=== PATIENT | female | born 1950 | race Asian ===

== ENCOUNTER 2017-01-01 10:29 | Inpatient (IN) | payer MEDICARE, OTHER ==
[2017-01-01] VITALS (7 sets, daily range): BP systolic 110–120; BP diastolic 65–73; PULSE 95–120; RESP 18–20; TEMP 99.3; Ht 142.2 cm; Wt 52.0 kg
[~2017-01-01] VITALS: Ht 142.2 cm; Wt 52.0 kg
[2017-01-01] MEDS ORDERED: SOD CHLORIDE 0.9% 1,000 ML IV STA ×2 (10:33)
[2017-01-01] MEDS ORDERED: CEFEPIME 2GM/50 ML (PMX) 50 ML IVPB STA (10:33)
[2017-01-01] MEDS ORDERED: VANCOMYCIN 1 GM (PMX) 250 ML IVPB ONE (11:00)
[2017-01-01 11:05] LABS: ABNORMAL IP MESSAGE 1; BASOPHILS % 0.1 % (0.0-2.0); HEMATOCRIT 35.5 % (37.0-47.0); HEMOGLOBIN 11.2 g/dl (12.0-16.0); LYMPHOCYTES # 0.6 10^3/ul (0.8-2.9); LYMPHOCYTES % 7.4 % (15.0-51.0); MEAN CORPUSCULAR HEMOGLOBIN 22.1 pg (29.0-33.0); MEAN CORPUSCULAR HGB CONC 31.5 g/dl (32.0-37.0); MEAN PLATELET VOLUME 11.1 fl (7.4-10.4); MONOCYTE # 0.6 10^3/ul (0.3-0.9); MONOCYTES % 7.4 % (0.0-11.0); NEUTROPHILS % 84.7 % (39.0-77.0); PLATELET COUNT 182 10^3/UL (140-415); RED BLOOD COUNT 5.07 10^6/ul (4.20-5.40); RED CELL DISTRIBUTION WIDTH 15.3 % (11.5-14.5); WHITE BLOOD COUNT 8.4 10^3/ul (4.8-10.8)
[2017-01-01 11:09] LABS: POSITIVE DIFF @See below
--- NOTE | 2017-01-01 11:18 | RADRPT ---
PROCEDURE: XR Chest. CLINICAL INDICATION: Sepsis . TECHNIQUE: Single frontal chest x-ray. COMPARISON: None. FINDINGS: The lungs are clear of acute infiltrates, edema, effusions, or masses. Cardiomegaly with calcific at herosclerosis of the aorta is present. . The hilar vascular prominence is noted.. The osseous stru ctures are intact. IMPRESSION: Cardiomegaly with hilar vascular prominence. No alveolar infiltrates, edema, or effusions.. RPTAT: AA .Dipak Diane MD, MD Date Time Electronically viewed and signed by .Dipak Diane MD, MD on 01/01/2017 11:18 .L/
[2017-01-01 11:19] LABS: INR 1.16; PROTIME 14.9 Sec (12.2-14.2); PT RATIO 1.2
[2017-01-01 11:20] LABS: PARTIAL THROMBOPLASTIN TIME 34.3 Sec (25.0-35.0)
[2017-01-01 11:23] LABS: ALANINE AMINOTRANSFERASE 18 IU/L (13-69); ALBUMIN 3.3 g/dl (3.3-4.9); ALKALINE PHOSPHATASE 59 IU/L (42-121); ANION GAP 20 (8-16); ASPARTATE AMINO TRANSFERASE 18 IU/L (15-46); BILIRUBIN,INDIRECT 0.6 mg/dl (0-1.1); BILIRUBIN,TOTAL 0.6 mg/dl (0.2-1.3); BLOOD UREA NITROGEN 15 mg/dl (7-20); CALCIUM 8.2 mg/dl (8.4-10.2); CARBON DIOXIDE 16 mmol/L (21-31); CHLORIDE 112 mmol/L (97-110); CREATININE 1.33 mg/dl (0.44-1.00); GLUCOSE 196 mg/dl (70-220); POTASSIUM 3.8 mmol/L (3.5-5.1); SODIUM 144 mmol/L (135-144); TOTAL PROTEIN 6.3 g/dl (6.1-8.1)
[2017-01-01 11:25] LABS: ACETAMINOPHEN < 10.0 ug/ml (10.0-30.0); ETHANOL < 10.0 mg/dl; SALICYLATE < 1.0 mg/dl (5.0-30.0)
[2017-01-01 11:35] LABS: TROPONIN-I < 0.012 ng/ml (0.00-0.12)
[2017-01-01 11:37] LABS: UR BACTERIA FEW /HPF (NONE SEEN); UR MUCUS FEW /HPF (NONE SEEN); UR RBC 6 /HPF (0-5); UR WBC CLUMPS MANY /HPF (NONE SEEN)
[2017-01-01 11:47] LABS: BARBITURATES Negative (NEGATIVE); BENZODIAZEPINES Negative (NEGATIVE); CANNABINOIDS Negative (NEGATIVE); COCAINE Negative (NEGATIVE); OPIATES Negative (NEGATIVE)
--- NOTE | 2017-01-01 12:01 | RADRPT ---
PROCEDURE: CT Brain without contrast. CLINICAL INDICATION: Possible sepsis. . TECHNIQUE: A CT of the brain was performed on multidetector high-resolution CT scanner utilizing a xial sections from the skull base through the vertex without contrast. The scan was reviewed in sof t tissue brain and high frequency resolution bone algorithm windows. Images were reviewed on a high -resolution PACS workstation. One or more the following does reduction techniques were utilized: Aut omated exposure control, adjustment of the mA/ or kV according to patient's size, or use of iterativ e reconstruction technique. The exam CTDI = 44.88 mGy and the DLP = 630.2 mGy-cm. COMPARISON: None available. FINDINGS: The ventricles and sulci are mildly prominent indicative of volume loss, more pronounced in bilatera l frontal lobes. There is no intracranial hemorrhage, mass effect or midline shift. No abnormal in tra-axial or extra-axial fluid collections are seen. The sanders/white matter differentiation is preser maria esther. There are mild scattered foci of hypoattenuation in the white matter, which are nonspecific in etiol ogy but likely reflect chronic small vessel ischemic changes. There are mild intracranial vascular calcifications consistent with atherosclerosis. The visualized paranasal sinuses are essentially zachary ar. IMPRESSION: 1. No acute intracranial hemorrhage, transcortical infarction or mass effect. 2. Mild intracranial atherosclerosis and chronic small vessel ischemic changes. 3. Mild cerebral volume loss. RPTAT: HH .Sayda Kapoor MD, MD Date Time Electronically viewed and signed by .Sayda Kapoor MD, MD on 01/01/2017 12:00 .N/
[2017-01-01 12:14] LABS: ADD UMIC YES; UR ASCORBIC ACID NEGATIVE (NEGATIVE); UR BILIRUBIN (Dip) NEGATIVE (NEGATIVE); UR BLOOD (Dip) 1+ mg/dL (NEGATIVE); UR CLARITY CLOUDY (CLEAR); UR COLOR YELLOW (YELLOW); UR GLUCOSE (Dip) NEGATIVE (NEGATIVE); UR KETONES (Dip) 1+ mg/dL (NEGATIVE); UR LEUKOCYTE ESTERASE (Dip) 3+ Leu/ul (NEGATIVE); UR NITRITE (Dip) POSITIVE (NEGATIVE); UR NONSQUAMOUS EPITHELIAL CELL 1 /HPF (NONE SEEN); UR SPECIFIC GRAVITY (Dip) 1.013 (1.003-1.030); UR TOTAL PROTEIN (Dip) 2+ mg/dl (NEGATIVE); UR UROBILINOGEN (Dip) NEGATIVE (NEGATIVE)
[2017-01-01] MEDS ORDERED: ACETAMINOPHEN 325 MG TAB PO PRN ×2 (12:30→20:30)
[2017-01-01] MEDS ORDERED: ONDANSETRON 4 MG INJ IV PRN (12:30)
--- NOTE | 2017-01-01 13:29 | ERA ---
ER Documentation Chief Complaint Date/Time DATE: 01/01/17 TIME: 13:18 Chief Complaint aloc, witnessed syncope while at [facility] emergency department HPI Patient is an approximately 59-year-old female who presents with syncope. She is also altered. Please note the history and physical exam is limited secondary to the patient's altered mental status at this time. The patient was [facility] and passed out in the bathroom. The patient was brought in by ambulance. The patient was unresponsive initially and diaphoretic but is now awake although confused. The patient's sugar was 183 and EKG showed tachycardia. The patient was given 500 mL of normal saline by paramedics. Her blood pressure was low at 80/40. ROS All systems reviewed and are negative except as per history of present illness. Medications Home Meds Unable to Obtain Active Prescriptions or Reported Meds Allergies Allergies: Coded Allergies: Unknown: Unable to obtain (Unverified , 01/01/17) PT UNRESPONSIVE PMhx/Soc Medical and Surgical Hx: Unable to obtain Smoking Status: Unknown if ever smoked FmHx Unable to obtain Physical Exam Vitals Vital Signs Date Time Temp Pulse Resp B/P Pulse Ox O2 Delivery O2 Flow Rate FiO2 01/01/17 13:06 86 20 98/66 98 Room Air 01/01/17 11:35 101 22 95/77 98 Room Air 01/01/17 11:15 110 22 87/65 97 Room Air 01/01/17 11:13 Nasal Cannula 2 01/01/17 10:54 115 22 79/63 98 Room Air 01/01/17 10:30 99.3 122 30 76/52 98 Physical Exam Const: Moderate distress and confused Head: Atraumatic Eyes: Normal Conjunctiva ENT: Dry mucous membranes Neck: Full range of motion..~ No meningismus. Resp: Clear to auscultation bilaterally Cardio: Tachycardic rate without murmur Abd: Soft, non tender, non distended. Normal bowel sounds Skin: No petechiae or rashes Back: No midline or flank tenderness Ext: No cyanosis, or edema Neur: Awake But confused and not answering questions appropriately Result Diagram: 01/01/17 1045 01/01/17 1045 Results 24 hrs Laboratory Tests Test 01/01/17 10:45 01/01/17 11:15 01/01/17 12:30 White Blood Count 8.410^3/ul Red Blood Count 5.0710^6/ul Hemoglobin 11.2g/dl Hematocrit 35.5% Mean Corpuscular Volume 70.0fl Mean Corpuscular Hemoglobin 22.1pg Mean Corpuscular Hemoglobin Concent 31.5g/dl Red Cell Distribution Width 15.3% Platelet Count 19604^3/UL Mean Platelet Volume 11.1fl Neutrophils % 84.7% Lymphocytes % 7.4% Monocytes % 7.4% Eosinophils % 0.0% Basophils % 0.1% Nucleated Red Blood Cells % 0.0/100WBC Neutrophils # (Manual) 7.110^3/ul Lymphocytes # 0.610^3/ul Monocytes # 0.610^3/ul Eosinophils # 0.010^3/ul Basophils # 0.010^3/ul Nucleated Red Blood Cells # 0.010^3/ul Prothrombin Time 14.9Sec Prothrombin Time Ratio 1.2 INR International Normalized Ratio 1.16 Activated Partial Thromboplast Time 34.3Sec Sodium Level 144mmol/L Potassium Level 3.8mmol/L Chloride Level 112mmol/L Carbon Dioxide Level 16mmol/L Anion Gap 20 Blood Urea Nitrogen 15mg/dl Creatinine 1.33mg/dl Glucose Level 196mg/dl Lactic Acid Level 5.4mmol/L 1.6mmol/L Calcium Level 8.2mg/dl Total Bilirubin 0.6mg/dl Direct Bilirubin 0.00mg/dl Indirect Bilirubin 0.6mg/dl Aspartate Amino Transf (AST/SGOT) 18IU/L Alanine Aminotransferase (ALT/SGPT) 18IU/L Alkaline Phosphatase 59IU/L Troponin I < 0.012ng/ml Total Protein 6.3g/dl Albumin 3.3g/dl Globulin 3.00g/dl Albumin/Globulin Ratio 1.10 Salicylates Level < 1.0mg/dl Acetaminophen Level < 10.0ug/ml Ethyl Alcohol Level < 10.0mg/dl Urine Color YELLOW Urine Clarity CLOUDY Urine pH 5.0 Urine Specific Hudson 1.013 Urine Ketones 1+mg/dL Urine Nitrite POSITIVEmg/dL Urine Bilirubin NEGATIVEmg/dL Urine Urobilinogen NEGATIVEmg/dL Urine Leukocyte Esterase 3+Violette/ul Urine Microscopic RBC 6/HPF Urine Microscopic WBC > 182/HPF Urine Bacteria FEW/HPF Urine Mucus FEW/HPF Urine Hemoglobin 1+mg/dL Urine Glucose NEGATIVEmg/dL Urine Total Protein 2+mg/dl Urine Opiates Screen Negative Urine Barbiturates Negative Urine Amphetamines Screen Negative Urine Benzodiazepines Screen Negative Urine Cocaine Screen Negative Urine Cannabinoids Negative Current Medications Medications (Trade) Dose Ordered Sig/Genesis Route PRN Reason Start Time Stop Time Status Last Admin Dose Admin Cefepime HCl 50 ml @ 100 mls/hr ONCE STAT IVPB 01/01/17 10:33 01/01/17 11:02 DC 01/01/17 11:30 Vancomycin HCl 250 ml @ 125 mls/hr ONCE ONCE IVPB 01/01/17 11:00 01/01/17 12:59 DC 01/01/17 12:57 Sodium Chloride 1,000 ml @ 1,000 mls/hr Q1H STAT IV 01/01/17 10:33 01/01/17 11:32 DC 01/01/17 11:29 Sodium Chloride (NS) 1,000 ml @ 1,000 mls/hr Q1H STAT IV 01/01/17 10:33 01/01/17 11:32 DC 01/01/17 10:45 Ondansetron HCl (Zofran Inj) 4 mg BRIDGE ORDER PRN IV NAUSEA AND/OR VOMITING 01/01/17 12:30 01/02/17 12:29 Acetaminophen 650 mg 650 mg ER BRIDGE PRN PO MILD PAIN/FEVER 01/01/17 12:30 01/02/17 12:29 Ceftriaxone Sodium (Rocephin) 50 ml @ 100 mls/hr Q24H IVPB 01/01/17 13:00 Procedures/MDM EKG read by me: Rate/Rhythm: Sinus tachycardia rate of 119 Intervals: Normal Impression: Sinus tachycardia without ischemia Chest x-ray shows no pneumonia or pneumothorax per radiology. CT brain shows no intrarenal hemorrhage or mass per radiology. Admit MDM: Patient's infectious symptoms have not stabilized and the patient is at risk of rapid decompensation. The patient will be admitted for careful hydration, antibiotic therapy, and infectious source control. Severe Sepsis criteria: Infectious source: Cystitis End organ damage indicated by: Lactate greater than 2 Sepsis Management: Time of recognition of sepsis: Upon arrival Within 3 hours of recognition: Blood cultures x 2 before broad-spectrum antibiotics: Yes 30 ml/kg NS bolus Completed Initial lactate 5.4 Repeat lactate 1.6 Time of recognition of septic shock: At the time of the initial lactic acid of 5.4 Septic Shock Assessment: Any lactic acid > 4.0 yes Persistent hypotension (SBP < 90 or 40 mmHg drop, MAP < 65) despite 30 mL/kg IV fluid bolus No Volume Re-assessment for Septic Shock (post 30 ml/kg bolus): Temp 99.3, BP 98/66, HR 86, RR 20, Pox 98% Heart Regular rate & rhythm Lungs No crackles Skin Warm & dry Cap Refill Less than 2 seconds Peripheral pulses Radially present Persistent Hypotension Treatment: Comfort care No Central line Not Required Vasopressor started Not required I considered further perfusion assessment with CVP measurement, SCVO2, bedside ultrasound volume assessment, passive leg raise, trial of further fluid bolus. And proceeded with 30 ml/kg fluid bolus of NSS, broad spectrum antibiotics, and admission. Accepting Care Team Current data and ongoing care discussed. Admitting Physician: Dr. Narvaez from the panel team Shop Hand(s): None Outstanding Data: Culture results Critical Care: Critical care time 35 minutes excluding all billable procedures Emergent fluid management while maintaining close respiratory support. Provision of immediate and broad-spectrum antibiotic therapy. Simultaneous assessment for possible sources in order to direct targeted therapy. Consideration for invasive and chemical support to prevent cardiopulmonary collapse. Departure Diagnosis: Primary Impression: Septic shock Additional Impressions: Syncope Qualified Code: R55 - Syncope, unspecified syncope type Altered mental status Qualified Code: R41.0 - Delirium Cystitis Condition: Serious ELIGIO CHEN MD Jan 01, 2017 13:28
--- NOTE | 2017-01-01 15:37 | HP ---
Date/Time of Note Date/Time of Note DATE: 01/01/17 TIME: 15:32 Assessment/Plan VTE Prophylaxis VTE Prophylaxis Intervention: SCD's Assessment/Plan Assessment/Plan 68 yo F with unknown pmhx admitted after being found somnolent and unresponsive in the community. Clinical scenario concerning for acute encephalopathy from toxic/metabolic origin, possibly cystitis given UA results PLAN empiric abx tele monitoring as no liver disfunction no compelling indication to check ammonia level brain imaging nonspecific if pt not more awake by AM, consider additional imaging, neuro eval HPI/ROS Admit Date/Time Admit Date/Time Jan 01, 2017 at 12:22 Hx of Present Illness all hx obtained exclusively from chart/talking to ER as pt too somnolent to provide meaningful info at time of clinical encounter HPI 68 yo F with unknown pmhx BIBA after ?passing out? at [employer] earlier this morning. Pt went to counter at restaurant and ordered then sat down at a table and appeared to slump over? Was speaking a little in ambulance per report. On my clinical evaluation pt is sleeping, snoring but protecting her airway. Winces to painful stimuli. unable to obtain PMHx/PSHx/Meds/All/FamHx/SocHx/ROS 2/2 clinical status PMH/Family/Social Social History Smoking Status: Unknown if ever smoked Exam/Review of Systems Vital Signs Vitals Vital Signs Date Time Temp Pulse Resp B/P Pulse Ox O2 Delivery O2 Flow Rate FiO2 01/01/17 15:00 95 01/01/17 13:32 99.3 24 97/69 98 Room Air 01/01/17 11:13 2 Exam Exam snoring, winces/grimaces to painful stimulation protecting airway poor dentition no mrg lungs clear abd soft no rashes labs reviewed, WBCs not markedly elevated. dirty UA, +lactic acidosis on initial arrival Labs Result Diagram: 01/01/17 1045 01/01/17 1045 Medications Medications Current Medications Ceftriaxone Sodium (Rocephin) 50 ml @ 100 mls/hr Q24H IVPB ; Start 01/01/17 at 13:00 JALEESA MARIEE MD Jan 01, 2017 15:37
[2017-01-01] MEDS ORDERED: NACL 0.9% 3 ML SYG IV SCH (16:00)
[2017-01-01] MEDS: CEFTRIAXONE 2 GM/50 ML (PMX) 50 ML IVPB SCH (16:58)
[2017-01-01] MEDS: ENOXAPARIN 40 MG/0.4 ML SYG SC SCH (17:03)
[2017-01-01] MEDS ORDERED: ACETAMINOPHEN 650 MG SUPP PR PRN (20:30)
[2017-01-02] VITALS (12 sets, daily range): BP systolic 92–141; BP diastolic 61–82; PULSE 84–100; RESP 18–20
[2017-01-02 07:41] LABS: ABNORMAL IP MESSAGE 1; BASOPHILS % 0.3 % (0.0-2.0); HEMATOCRIT 31.9 % (37.0-47.0); HEMOGLOBIN 10.1 g/dl (12.0-16.0); LYMPHOCYTES # 0.7 10^3/ul (0.8-2.9); LYMPHOCYTES % 9.6 % (15.0-51.0); MEAN CORPUSCULAR HEMOGLOBIN 22.1 pg (29.0-33.0); MEAN CORPUSCULAR HGB CONC 31.7 g/dl (32.0-37.0); MEAN CORPUSCULAR VOLUME 69.7 fl (82.0-101.0); MONOCYTES % 12.5 % (0.0-11.0); NEUTROPHILS % 77.3 % (39.0-77.0); PLATELET COUNT 171 10^3/UL (140-415); RED BLOOD COUNT 4.58 10^6/ul (4.20-5.40); RED CELL DISTRIBUTION WIDTH 15.2 % (11.5-14.5); WHITE BLOOD COUNT 7.7 10^3/ul (4.8-10.8)
[2017-01-02 07:52] LABS: POSITIVE DIFF @See below
[2017-01-02 08:18] LABS: CALCIUM 8.3 mg/dl (8.4-10.2); CREATININE 0.87 mg/dl (0.44-1.00); POTASSIUM 3.6 mmol/L (3.5-5.1)
[2017-01-02] MEDS: CEFTRIAXONE 2 GM/50 ML (PMX) 50 ML IVPB SCH (14:00)
--- NOTE | 2017-01-02 16:12 | PN ---
Date/Time of Note Date/Time of Note DATE: 01/02/17 TIME: 16:09 Assessment/Plan VTE Prophylaxis VTE Prophylaxis Intervention: SCD's Assessment/Plan Assessment/Plan 68 yo F with unknown pmhx admitted after being found somnolent and unresponsive in the community. Clinical scenario concerning for acute encephalopathy from toxic/metabolic origin, possibly cystitis given UA results PLAN empiric abx pending urine culture results dc tele sw helping with collateral. Subjective 24 Hr Interval Summary Free Text/Dictation Pt awake and alert today but difficult to obtain her identity. She states her name is Bouchra and 's name is Faisal. Repeats own is [phone] multiple times as well as address of [address] [place] [address], however provides range of info re her last name (Ramírez García) and no real phone numbers. Exam/Review of Systems Vital Signs Vitals Vital Signs Date Time Temp Pulse Resp B/P Pulse Ox O2 Delivery O2 Flow Rate FiO2 01/02/17 12:12 99.0 86 18 135/66 98 01/01/17 14:45 Room Air 01/01/17 11:13 2 Intake and Output 01/01/17 01/01/17 01/02/17 15:00 23:00 07:00 Intake Total 50 ml Balance 50 ml Exam sitting up in bed, alert, ?confused. keeps saying she does not want to go to the hospital very poor dentition no mrg lungs clear abd soft urine with GNRs Results Result Diagram: 01/02/17 0624 01/02/17 0624 Results 24 hrs Laboratory Tests Test 01/01/17 17:18 01/02/17 01:17 01/02/17 06:24 Lactic Acid Level 0.9 Bedside Glucose 124 White Blood Count 7.7 Red Blood Count 4.58 Hemoglobin 10.1 L Hematocrit 31.9 L Mean Corpuscular Volume 69.7 L Mean Corpuscular Hemoglobin 22.1 L Mean Corpuscular Hemoglobin Concent 31.7 L Red Cell Distribution Width 15.2 H Platelet Count 171 Mean Platelet Volume Neutrophils % 77.3 H Lymphocytes % 9.6 L Monocytes % 12.5 H Eosinophils % 0.0 Basophils % 0.3 Nucleated Red Blood Cells % 0.0 Neutrophils # (Manual) 5.9 Lymphocytes # 0.7 L Monocytes # 1.0 H Eosinophils # 0.0 Basophils # 0.0 Nucleated Red Blood Cells # 0.0 Sodium Level 145 H Potassium Level 3.6 Chloride Level 117 H Carbon Dioxide Level 21 Anion Gap 11 # Blood Urea Nitrogen 14 Creatinine 0.87 Glucose Level 109 # Calcium Level 8.3 L Medications Medications Current Medications Ceftriaxone Sodium (Rocephin) 50 ml @ 100 mls/hr Q24H IVPB Last administered on 01/02/17 14:00; Admin Dose 100 MLS/HR; Start 01/01/17 at 13:00 Enoxaparin Sodium (Lovenox) 40 mg DAILY@17 SC Last administered on 01/01/17 17: 03; Admin Dose 40 MG; Start 01/01/17 at 17:00 Acetaminophen (Tylenol Tab) 650 mg Q6H PRN PO PAIN AND OR ELEVATED TEMP; Start 01/01/17 at 20:30 Acetaminophen (Tylenol Supp) 650 mg Q6H PRN [place] fever >103; Start 01/01/17 at 20: 30 JALEESA MARIEE MD Jan 02, 2017 16:12
[2017-01-02] MEDS: ENOXAPARIN 40 MG/0.4 ML SYG SC SCH (18:06)
[2017-01-03 02:14] VITALS: BP 105/71; RESP 20
[2017-01-03 06:38] LABS: CALCIUM 8.4 mg/dl (8.4-10.2); CREATININE 0.85 mg/dl (0.44-1.00); POTASSIUM 3.9 mmol/L (3.5-5.1)
[2017-01-03 07:53] VITALS: BP 113/62; RESP 20
[2017-01-03] MEDS: TRIMETHOPRIM/SULFAMETHOX (DS) TAB PO SCH ×2 (09:07→21:31)
--- NOTE | 2017-01-03 12:52 | PN ---
Date/Time of Note Date/Time of Note DATE: 01/03/17 TIME: 12:51 Assessment/Plan VTE Prophylaxis VTE Prophylaxis Intervention: SCD's Lines/Catheters IV Catheter Type (from Nrsg): Saline Lock Assessment/Plan Assessment/Plan 68 yo F with unknown pmhx admitted after being found somnolent and unresponsive in the community. Clinical scenario concerning for acute encephalopathy from toxic/metabolic origin, possibly cystitis given UA results PLAN narrow abx to bactrim given culture results sw helping with collateral-->need to talk to family to ensure safe discharge Pt medically clear but we need a discharge plan Subjective 24 Hr Interval Summary Free Text/Dictation +febrile last night. Still insisting her name is Bouchra Elmore Exam/Review of Systems Vital Signs Vitals Vital Signs Date Time Temp Pulse Resp B/P Pulse Ox O2 Delivery O2 Flow Rate FiO2 01/03/17 07:53 97.6 82 20 113/62 96 01/02/17 23:25 Room Air 01/01/17 11:13 2 Intake and Output 01/02/17 01/02/17 01/03/17 15:00 23:00 07:00 Intake Total 50 ml 800 ml 0 ml Balance 50 ml 800 ml 0 ml Exam nad no mrg lungs clear abd soft no rashes Results Result Diagram: 01/02/17 0624 01/03/17 0530 Results 24 hrs Laboratory Tests Test 01/03/17 05:30 Sodium Level 144 Potassium Level 3.9 Chloride Level 116 H Carbon Dioxide Level 22 Anion Gap 10 Blood Urea Nitrogen 14 Creatinine 0.85 Glucose Level 114 Calcium Level 8.4 Medications Medications Current Medications Enoxaparin Sodium (Lovenox) 40 mg DAILY@17 SC Last administered on 01/02/17 18: 06; Admin Dose 40 MG; Start 01/01/17 at 17:00 Acetaminophen (Tylenol Tab) 650 mg Q6H PRN PO PAIN AND OR ELEVATED TEMP; Start 01/01/17 at 20:30 Acetaminophen (Tylenol Supp) 650 mg Q6H PRN [place] fever >103; Start 01/01/17 at 20: 30 Trimethoprim/ Sulfamethoxazole (Bactrim (Ds)) 1 tab BID PO Last administered on 01/03/17 09:07; Admin Dose 1 TAB; Start 01/03/17 at 09:00 JALEESA MARIEE MD Jan 03, 2017 12:52
[2017-01-03 14:00] VITALS: BP_SYST 112; RESP 16
[2017-01-03] MEDS: ENOXAPARIN 40 MG/0.4 ML SYG SC SCH (17:55)
[2017-01-03 20:00] VITALS: BP 115/60; RESP 19
[2017-01-04 02:00] VITALS: BP 106/69; RESP 19
[2017-01-04 07:55] VITALS: BP 122/75; RESP 20
[2017-01-04] MEDS: TRIMETHOPRIM/SULFAMETHOX (DS) TAB PO SCH ×2 (08:47→20:00)
[2017-01-04 14:59] VITALS: BP 120/72; RESP 20
--- NOTE | 2017-01-04 15:04 | PN ---
Date/Time of Note Date/Time of Note DATE: 01/04/17 TIME: 15:02 Assessment/Plan VTE Prophylaxis VTE Prophylaxis Intervention: SCD's Lines/Catheters IV Catheter Type (from Nrsg): Saline Lock Assessment/Plan Assessment/Plan 68 yo F with unknown pmhx admitted after being found somnolent and unresponsive in the community. Clinical scenario concerning for acute encephalopathy from toxic/metabolic origin, possibly cystitis given UA results PLAN cont bactrim I have asked sw to file APS report as it is concerning to me that when informed that his who had been missing for 2 days had been found he was comfortable waiting 24 hours to come see her in the hospital. Unclear if he ever filed a missing persons report. Also given this incident, I have concerns about pt's safety being alone in the community. Pt medically clear but we need a discharge plan-->await APS eval Subjective 24 Hr Interval Summary Free Text/Dictation Per notes, sw was able to reach pt's last night Exam/Review of Systems Vital Signs Vitals Vital Signs Date Time Temp Pulse Resp B/P Pulse Ox O2 Delivery O2 Flow Rate FiO2 01/04/17 14:59 98.0 78 20 120/72 94 01/02/17 23:25 Room Air 01/01/17 11:13 2 Intake and Output 01/03/17 01/03/17 01/04/17 15:00 23:00 07:00 Intake Total 1160 ml Balance 1160 ml Exam nad no mrg lungs clear abd soft no rashes Results Result Diagram: 01/02/17 0624 01/03/17 0530 Medications Medications Current Medications Enoxaparin Sodium (Lovenox) 40 mg DAILY@17 SC Last administered on 01/03/17 17: 55; Admin Dose 40 MG; Start 01/01/17 at 17:00 Acetaminophen (Tylenol Tab) 650 mg Q6H PRN PO PAIN AND OR ELEVATED TEMP; Start 01/01/17 at 20:30 Acetaminophen (Tylenol Supp) 650 mg Q6H PRN [place] fever >103; Start 01/01/17 at 20: 30 Trimethoprim/ Sulfamethoxazole (Bactrim (Ds)) 1 tab BID PO Last administered on 01/04/17 08:47; Admin Dose 1 TAB; Start 01/03/17 at 09:00 JALEESA MARIEE MD Jan 04, 2017 15:04
[2017-01-04] MEDS: ENOXAPARIN 40 MG/0.4 ML SYG SC SCH (17:18)
[2017-01-04 19:33] VITALS: BP 103/65; RESP 18
[2017-01-05 02:00] VITALS: BP 114/71; RESP 16
[2017-01-05 07:20] VITALS: BP 127/63; RESP 18
[2017-01-05] MEDS: TRIMETHOPRIM/SULFAMETHOX (DS) TAB PO SCH ×2 (08:10→21:18)
[2017-01-05 14:03] VITALS: BP 110/78; RESP 18
[2017-01-05] MEDS: ENOXAPARIN 40 MG/0.4 ML SYG SC SCH (17:00)
--- NOTE | 2017-01-05 18:10 | PN ---
Date/Time of Note Date/Time of Note DATE: 01/05/17 TIME: 18:05 Assessment/Plan VTE Prophylaxis VTE Prophylaxis Intervention: SCD's Lines/Catheters IV Catheter Type (from Nrsg): Peripheral IV Assessment/Plan Assessment/Plan 68 yo F with unknown pmhx admitted after being found somnolent and unresponsive in the community. Likely acute encephalopathy 2/2 cystitis. Now resolved. PLAN 3 days total for bactrim as mentioned in subjective, discussed pt with her , CM, and SW. I am concerned pt requires 24 hour supervision 2/2 underlying mental health issues for which she is not currently getting treatment. amenable to SNF placement. Given that pt appears to be responding to internal stimuli/talking to self, suspect underlying psychotic disorder (?schizophrenia/schizoaffective?) CM found SNF, pt to be transferred in AM Subjective 24 Hr Interval Summary Free Text/Dictation Met with pt and her this afternoon. Per discussion with , pt previously getting public sector mental health but case was closed? some time ago and no f/u mental health care has been arranged. Pt does not work and frequently wanders away from the house during the day. Has not previously had a medical crisis while away from home. states he and pt's adopted son are not able to provide 24 hour supervision. Exam/Review of Systems Vital Signs Vitals Vital Signs Date Time Temp Pulse Resp B/P Pulse Ox O2 Delivery O2 Flow Rate FiO2 01/05/17 14:03 97.4 84 18 110/78 93 01/02/17 23:25 Room Air 01/01/17 11:13 2 Intake and Output 01/04/17 01/04/17 01/05/17 15:00 23:00 07:00 Intake Total 920 ml 130 ml Balance 920 ml 130 ml Exam nad no mrg lungs clear abd soft no rashes Results Result Diagram: 01/02/17 0624 01/03/17 0530 Medications Medications Current Medications Enoxaparin Sodium (Lovenox) 40 mg DAILY@17 SC Last administered on 01/04/17t 17: 18; Admin Dose 40 MG; Start 01/01/17 at 17:00 Acetaminophen (Tylenol Tab) 650 mg Q6H PRN PO PAIN AND OR ELEVATED TEMP; Start 01/01/17 at 20:30 Acetaminophen (Tylenol Supp) 650 mg Q6H PRN [place] fever >103; Start 01/01/17 at 20: 30 Trimethoprim/ Sulfamethoxazole (Bactrim (Ds)) 1 tab BID PO Last administered on 01/05/17t 08:10; Admin Dose 1 TAB; Start 01/03/17 at 09:00 JALEESA MARIEE MD Jan 05, 2017 18:10
[2017-01-05 20:22] VITALS: BP 89/58; RESP 19
[2017-01-06 02:37] VITALS: BP 102/62; RESP 18
[2017-01-06 07:20] VITALS: BP 105/75; RESP 16
[2017-01-06] MEDS: TRIMETHOPRIM/SULFAMETHOX (DS) TAB PO SCH (08:15)
--- NOTE | 2017-01-06 08:16 | PDOCDIS ---
Discharge Instructions CONDITION Patient Condition: Stable HOME CARE INSTRUCTIONS: Special Diet: Pt is confused FOLLOW UP/APPOINTMENTS Follow-up Plan Please use the information from the rn case manager hospice to get a new regular doctor and psychiatrist. Please ask the people at the residential to help you get a new doctor and psychiatrist JALEESA MARIEE MD Jan 06, 2017 08:16
--- NOTE | 2017-01-06 08:23 | DS ---
Date/Time of Note Date/Time of Note DATE: 01/06/17 TIME: 08:16 Discharge Summary Admission/Discharge Info Admit Date/Time Jan 01, 2017 at 12:22 Discharge Date/Time Discharge Diagnosis acute toxic/metabolic encephalopathy 2/2 cystitis, chronic psychiatric condition (details unknown) Patient Condition: Stable Procedures Urine culture 9.4 tobar S EColi Hx of Present Illness all hx obtained exclusively from chart/talking to ER as pt too somnolent to provide meaningful info at time of clinical encounter HPI 68 yo F with unknown pmhx BIBA after ?passing out? at [employer] earlier this morning. Pt went to counter at restaurant and ordered then sat down at a table and appeared to slump over? Was speaking a little in ambulance per report. On my clinical evaluation pt is sleeping, snoring but protecting her airway. Winces to painful stimuli. unable to obtain PMHx/PSHx/Meds/All/FamHx/SocHx/ROS 2/2 clinical status Hospital Course Pt admitted as "Lizzie Logan" after being found altered in the community. By the evening of admission pt more awake. By the next morning pt awake and alert, however kept stating her name was Bouchra Elmore. Pt however knew her and SSN and using this info identity was uncovered. Pt's was contacted and informed of her whereabouts and he came to see the patient later that evening albeit for a very brief period of time. 9.8 I had a 30 minute meeting with the patient, her , and the social work supervisor. Pt lives with her and their adopted son. and son both work outside the home and pt is left alone unsupervised much of the time. Pt frequently wanders away from home during the day but this was the first time anything untoward resulted to his knowledge. In the hospital pt was oriented to person, place, and time however noted to be frequently responding to questions with non sequiturs and responding to internal stimuli. Given level of pt's impairment, most likely from underlying psychiatric disorder, this patient needs 24 hour supervision until her psychiatric condition can be addressed. Family unable to provide 24 hour supervision thus pt was transferred to a SNF until she can be brought back into consistent mental health care. APS report filed by [facility] prior to discharge. Pt found to have UTI on admission, completed 5 days of abx during her stay. Home Meds Reported Medications [None] No Conflict Check 09/13/15 Follow-up Plan PCP needs new SNF and psychiatrist which I asked CM to arrange prior to discharge to SNF Primary Care Provider Time spent on discharge: > 30 minutes JALEESA MARIEE MD Jan 06, 2017 08:23
== END 2017-01-06 11:13 | DRG 93 ==
LOC: E/R 10:29 → EDBD 12:22 → MS4 12:22 → MERGE 12:22 → PP2 01-02 22:45
PROVIDERS: ADMIT Internal Medicine; ATTEND Internal Medicine
DX: G92 Toxic encephalopathy (principal); N30.90 Cystitis, unspecified without hematuria; F99 Mental disorder, not otherwise specified
CPT/HCPCS: 36415; 70450; 71010; 80048; 80053; 80306; 80307; 81001; 82962; 83605; 84484; 85025; 85610; 85730; 87040; 87086; 93005; 96372; 96374; 96375; J0692; J1650; J3370; J7030